=== PATIENT | female | born 1985 | race Hispanic/Latino ===

== ENCOUNTER 2017-04-07 14:10 | Inpatient (IN) ==
[2017-04-07] MEDS ORDERED: PEPCID IV PRN (14:17)
[2017-04-07] MEDS ORDERED: PEPCID PO ONE (14:17)
[2017-04-07] MEDS ORDERED: ZOFRAN IV PRN (14:17)
[2017-04-07] MEDS ORDERED: LR 500 ML IV ONE (14:17)
[2017-04-07] MEDS ORDERED: STADOL IV PRN (14:17)
[2017-04-07] MEDS ORDERED: LR 1,000 ML IV SCH (14:17)
[2017-04-07] MEDS ORDERED: REGLAN PO ONE (14:17)
[2017-04-07] MEDS ORDERED: TYLENOL PO PRN (14:17)
[2017-04-07] MEDS ORDERED: AMPICILLIN 2 GM/NS 2 GM/100 ML IVPB IV ONE (14:17)
[2017-04-07] MEDS ORDERED: KEFZOL 1 GM/D5W 1 GM/50 ML IVPB IV PRN (14:17)
[2017-04-07] MEDS ORDERED: PITOCIN 30 UNITS/LR 30 UNITS/500 ML IV.SOLN IV SCH (14:17)
[2017-04-07] MEDS ORDERED: PEPCID PO PRN (14:17)
[2017-04-07 14:29] LABS: MANUAL DIFF NEEDED? NO
[2017-04-07] MEDS ORDERED: SODIUM CHLORIDE 0.9% INJ SCH (14:30)
[2017-04-07 14:32] LABS: BASO% 0.2 % (0.0-0.8); EOS# 0.02 X1000 (0.0-0.7); EOS% 0.2 % (0.0-10.0); HEMATOCRIT 35.6 % (37.0-47.0); HEMOGLOBIN 11.9 g/dL (12.0-16.0); IMM GRAN# 0.02 X1000 (0.0-0.04); IMM GRAN% 0.2 % (0.0-0.5); LYMPH# 2.63 X1000 (1.2-3.4); MCH 29.7 PG (27-31); MCHC 33.4 g/dL (33-37); MCV 88.8 FL (81-99); MONO# 0.69 X1000 (0.11-0.59); MONO% 5.5 % (1.7-9.3); MPV 11.6 FL (7.4-10.4); NEUT% 72.9 % (42.2-75.2); PLT 212 X1000 (130-400); RBC 4.01 XMIL (4.2-5.4)
[2017-04-07] MEDS ORDERED: AMBIEN PO PRN (14:54)
[2017-04-07] MEDS ORDERED: PITOCIN 30 UNITS/LR 30 UNITS/500 ML IV.SOLN IV ONE (14:54)
[2017-04-07] MEDS ORDERED: PERCOCET-10 PO PRN (14:54)
[2017-04-07] MEDS ORDERED: BOOSTRIX VACCINE IM ONE (14:54)
[2017-04-07] MEDS ORDERED: HYDROXYZINE PO PRN (14:54)
[2017-04-07] MEDS ORDERED: PERI MEDS (DERMOPLAST/NUPERCAINAL/TUCKS) MISC PRN (14:54)
[2017-04-07] MEDS ORDERED: PERCOCET-5 PO PRN (14:54)
[2017-04-07] MEDS ORDERED: BENADRYL IV PRN (14:54)
[2017-04-07] MEDS ORDERED: HYDROXYZINE IM PRN (14:54)
[2017-04-07] MEDS ORDERED: NORCO-10 PO PRN (14:54)
[2017-04-07] MEDS ORDERED: CYTOTEC PO PRN (14:54)
[2017-04-07] MEDS ORDERED: MINERAL OIL PO PRN (14:54)
[2017-04-07] MEDS ORDERED: PITOCIN 20 UNITS/LR 20 UNITS/1,000 ML IV.SOLN IV SCH (14:54)
[2017-04-07] MEDS ORDERED: BENADRYL PO PRN (14:54)
[2017-04-07] MEDS ORDERED: M-M-R II VACCINE SUBQ ONE (14:54)
[2017-04-07] MEDS ORDERED: PITOCIN IM PRN (14:54)
[2017-04-07] MEDS ORDERED: XYLOCAINE-MPF 1% INJ PRN (14:54)
[2017-04-07 15:13] LABS: RAPID HIV PRESUMPTIVE NEGATIVE
--- NOTE | 2017-04-07 15:18 | OPERATIVE NOTE ---
PROCEDURE DATE: 04/07/2017 DELIVERING PHYSICIAN: Javier Bailon MD. TYPE OF DELIVERY: Vaginal. FINDINGS: At 1427 a 5 pound 15 ounce female infant was delivered in occiput anterior presentation. Apgars of 9 at 1 minute and 10 at 5 minutes. SUMMARY: Racquel Rdz is a 32-year-old, apparently 4, para 3, who has had no care. Due to language difficulties we were unable to get much history from her. She states that she was due to deliver yesterday, but we are unsure of her dating criteria. She presented to the emergency room in active labor and was brought immediately to Labor and Delivery. She was extremely uncooperative and was biting, pinching, and hitting myself and the Labor and Delivery staff. An IV was quickly established. The patient, again, remained extremely uncooperative and refused any of our efforts to assist her in delivery. The heart tones were down and in spite of encouragement, she refused to push for several minutes. When she finally pushed we had a rapid delivery of a viable female infant. The oropharynx was bulb suctioned. The cord was clamped and cut and the was handed to the nurses for further care and evaluation. Cord blood was obtained. Placenta was spontaneously delivered and was intact. The patient continued to remain uncooperative. There was a midline tear and she slapped my hand every time I tried to examine her and refused any of my efforts to treat her further. Her bleeding was minimal. We therefore will not attempt to repair this laceration. Blood loss was estimated at 200 mL. cc: Javier Bailon MD MTDD
[2017-04-07] MEDS: MOTRIN PO PRN (17:11)
[2017-04-07] MEDS: NORCO-5 PO PRN (17:12)
[2017-04-07] MEDS ORDERED: AMPICILLIN 1 GM/NS 1 GM/50 ML IVPB IV SCH (18:18)
[2017-04-07 18:34] LABS: RUBELLA SCREEN IMMUNE (IMMUNE)
[2017-04-07] MEDS: PERICOLACE PO SCH (21:07)
[2017-04-08 06:12] LABS: HEMATOCRIT 27.8 % (37.0-47.0); MCH 28.8 PG (27-31); MCHC 32.4 g/dL (33-37); MCV 89.1 FL (81-99); MPV 11.8 FL (7.4-10.4); RBC 3.12 XMIL (4.2-5.4)
[2017-04-08] MEDS: NORCO-5 PO PRN (06:40)
[2017-04-08] MEDS: MOTRIN PO PRN (08:19)
[2017-04-08 09:50] LABS: HEPATITIS B SURFACE ANTIGEN SEE COMMENTS
[2017-04-08] MEDS: PERICOLACE PO SCH (20:21)
[2017-04-09] MEDS: MOTRIN PO PRN (08:00)
[2017-04-09] MEDS: NORCO-5 PO PRN (08:00)
[2017-04-09 10:26] LABS: HIV ANTIBODY SCREEN SEE COMMENTS
[2017-04-09 16:38] VITALS: BP 118/67
== END 2017-04-09 18:00 | disposition home or self-care (01) ==
LOC: P.LD 14:10 → P.WC 16:42
PROVIDERS: ADMIT Obstetrics & Gynecology; ATTEND Obstetrics & Gynecology